=== PATIENT | female | born 1940 | race Caucasian/White ===

== ENCOUNTER 2020-08-27 13:56 | Outpatient (CLI) | payer MEDICARE, SELFPAY ==
--- NOTE | ~2020-08-27 | US_ITS ---
EXAMINATION: US art doppler w press VITA EXAM DATE: 08/27/2020 14:47 INDICATION: CAD,PVD CAD, PVD . TECHNIQUE: Segmental pressures and plethysmographic and Doppler waveforms of the brachial and lower e xtremity arteries were obtained. There is no prior study for comparison. FINDINGS: Right and left brachial artery pressures of 140 mm Hg and 139 mm Hg, respectively, are concordant (no rmal difference <= 30 mmHg). The right and left thigh-brachial pressure indices are 0.76, 0.91, resp ectively (normal > 1.2). RIGHT LEG: The ankle-brachial index (DENIS) is 0.65 (normal >= 0.9-1). The great toe-brachial index (TBI) is 0.46 (normal >= 0.65). The lower extremity ratios, segmental pressure gradients as follows; Proximal superficial femoral artery:- 0.76 (106 mmHg). Distal superficial femoral artery: ----- 0.76 (107 mmHg). Popliteal: 0.71 (99 mmHg). Dorsalis pedis: 0.63 (88 mmHg). Posterior tibial: 0.65 (91 mmHg). (Normal gradients <= 20-30 mmHg between adjacent levels on the same leg or the same levels on the two legs). Arterial waveforms are monophasic. LEFT LEG: The ankle-brachial index (DENIS) is 0.70 (normal >= 0.9-1). The great toe-brachial index (TBI) is 0.52 (normal >= 0.65). The lower extremity ratios, segmental pressure gradients as follows; Proximal superficial femoral artery:- 0.91 (127 mmHg). Distal superficial femoral artery: ----- 0.84 (117 mmHg). Popliteal: 0.79 (111 mmHg). Dorsalis pedis: 0.53 (74 mmHg). Posterior tibial: 0.70 (98 mmHg). (Normal gradients <= 20-30 mmHg between adjacent levels on the same leg or the same levels on the two legs). Arterial waveforms are monophasic. IMPRESSION: 1. Right ankle-brachial index 0.65, mild to moderately decreased. 2. Left ankle-brachial index 0.70, mildly decreased. 3. Lower than expected common femoral brachial ratios bilaterally could indicate inflow stenosis. Co nsider CTA abdomen pelvis. Reviewed, dictated and finalized at location A. IMPRESSION: 1. Right ankle-brachial index 0.65, mild to moderately decreased. 2. Left ankle-brachial index 0.70, mildly decreased. 3. Lower than expected common femoral brachial ratios bilaterally could indica te inflow stenosis. Consider CTA abdomen pelvis.
== END 2020-08-27 13:57 | disposition home or self-care (01) ==
PROVIDERS: PCP Family Medicine; Visit Provider Internal Medicine Cardiovascular Disease
DX: I25.10 Atherosclerotic heart disease of native coronary artery without angina pectoris (principal); I73.9 Peripheral vascular disease, unspecified; R94.39 Abnormal result of other cardiovascular function study
CPT/HCPCS: 93923

== ENCOUNTER 2021-09-28 14:56 | Outpatient (CLI) | payer MEDICARE, SELFPAY ==
--- NOTE | ~2021-09-28 | DEXA_ITS ---
Bone Density Report Name: GERMAN ROWAN Age: 81 Sex: Female Ethnicity: White Date of : 1940 Indication: osteopenia; height loss; hysterectomy; rheumatoid arthritis; postmenopausal Referring Provider: UNKNOWN, UNKNOWN Study: Bone densitometry was performed. Exam Date: September 28, 2021 Accession number: [id number] Bone Density: Region BMD T-score Z-score Classification AP Spine(L1-L4) 1.058 0.1 2.8 Normal Femoral Neck (Left) 0.686 -1.5 0.8 Osteopenia Total Hip (Left) 0.760 -1.5 0.6 Osteopenia Femoral Neck (Right) 0.650 -1.8 0.5 Osteopenia Total Hip (Right) 0.743 -1.6 0.4 Osteopenia Total Hip Mean 0.751 -1.6 0.5 Osteopenia World Health Organization criteria for BMD impression classify patients as: Normal (T-score at or above -1.0), Osteopenia (T-score between -1.0 and -2.5), or Osteoporosis (T-score at or below -2.5). 10-year Fracture Risk(1): Major Osteoporotic Fracture 15% Hip Fracture 4.7% Reported Risk Factors: [place] (), Neck BMD=0.650, BMI=19.3, rheumatoid arthritis (1) FRAX(R) Version 3.08. Fracture probability calculated for an untreated patient. Fracture probability may be lower if the patient has received treatment. Previous Exams: Region Exam Age BMD T-score BMD Change BMD Change Date g/cm2 vs Baseline vs Previous AP Spine (L1-L4) 09/28/2021 81 1.058 0.1 -0.007 (-0.7%) -0.007 (-0.7%) 09/26/2015 75 1.065 0.2 Total Hip(Left) 09/28/2021 81 0.760 -1.5 -0.063 (-7.7%) -0.063 (-7.7%) 09/26/2015 75 0.823 -1.0 Total Hip(Right) 09/28/2021 81 0.743 -1.6 0.023 (3.2%) 0.023 (3.2%) 09/26/2015 75 0.720 -1.8 *Denotes significance at 95% confidence level, LSC for AP Spine = 0.022 g/cm2, LSC for Total Hip = 0.027 g/cm2 Clinical Information Provided by Patient: Has rheumatoid arthritis Has used the following medications: Calcium Has the following medical conditions: Hysterectomy Patient maximum height was 67 Menopause Age: 43 No regular weight bearing exercise Drinks caffeinated beverages Onset of menses at age 13 Number of children 2 Impression: The patient has low bone mass, based on the Right Femoral Neck T-score. The patient has an estimated ten-year risk of hip fracture of 4.7% and an estimated ten-year risk of major fracture of 15%, based on the WHO FRAX algorithm. The BMD for the Total Hip(Left) decreased, changing by -7.7% since the last DXA exam. Discussion: BON
== END 2021-09-28 14:57 | disposition home or self-care (01) ==
PROVIDERS: PCP Family Medicine
DX: Z78.0 Asymptomatic menopausal state (principal); M85.851 Other specified disorders of bone density and structure, right thigh; M85.852 Other specified disorders of bone density and structure, left thigh
CPT/HCPCS: 77080

== ENCOUNTER 2023-02-28 08:40 | Outpatient (CLI) | payer MEDICARE, SELFPAY ==
--- NOTE | ~2023-02-28 | MR_ITS ---
EXAMINATION: MR MRCP wo/w con/w 3D wo ind DATE: 02/28/2023 09:56 INDICATION: Liver cyst. Chronic right abdominal pain. TECHNIQUE: Magnetic resonance imaging (MRI) of the abdomen was performed without and with 10 mL Multi Irish intravenous contrast. Sequences included coronal T2-weighted FS FSE, coronal T2-weighted FSE, a xial T1-weighted LAVA, coronal FS FIESTA, axial dual-echo T1-weighted SPGR, coronal lava-FLEX, sagitt al T2-weighted FSE, axial T2-weighted FSE, and axial DWI. Thick-slab T2-weighted FSE images were obta ined for magnetic resonance cholangiopancreatography (MRCP). Maximum intensity projection 3-D reconst ructions of the volumetric data were created by the technologist. Postcontrast sequences included cor onal LAVA-flex and time course of axial T1-weighted LAVA. COMPARISON: Abdomen ultrasound 01/17/16, CT 10/09/2012 FINDINGS: ABDOMEN MRI: There are cysts in the liver measuring up to 14.0 cm. The spleen is normal. The gallblad alexei is absent. There is a 13 mm cyst in the tail of the pancreas, likely benign. The adrenal glands a re normal. There are cysts in the kidneys measuring up to 17 mm on the right. There are hemorrhagic c ysts in the kidneys measuring up to 13 mm on the left. There are no dilated loops of bowel. There are no pathologically enlarged lymph nodes. There is no free intraperitoneal fluid. ABDOMEN MRCP: The common duct is normal and measures 9 mm. No choledocholithiasis. IMPRESSION: 1. Benign cysts in the liver measuring up to 14.0 cm. Reviewed, dictated and finalized at location A. [employer]
== END 2023-02-28 08:41 ==
LOC: MICIMG 08:41
PROVIDERS: PCP Nurse Practitioner Family
DX: K76.89 Other specified diseases of liver (principal)
CPT/HCPCS: 74183; 76376; A9577